=== PATIENT | male | born 1960 | race Caucasian/White ===

== ENCOUNTER 2021-07-08 14:00 | Emergency (ER) | payer SELFPAY ==
[2021-07-08 14:16] VITALS: BP 133/72; PULSE 61; RESP 20; TEMP 36.5; O2SAT 99
[2021-07-08 14:28] LABS: Glucose Point of Care 127 mg/dl (65-105)
--- NOTE | 2021-07-08 14:41 | ED.DIZZY ---
HPI - Dizziness General Chief Complaint: Dizziness Stated Complaint: dizziness Source: family () History of Present Illness HPI Narrative: Patient tells registration that he is dizzy and weak. 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 Patient was unable to verbalize questions and was holding head. reports patient awoke at 0530 am with severe dizziness. She reports diaphoresis, barely could stand and weakness. reports thinking he had hypoglycemia and fed him a chocolate bar. reports that patient has not been to a doctor in 20 years. Patient continues to be unable to verbalize answers to questions. Discussed that patient's condition concerning with and calling EMS at this time. reports that he will not go by EMS, however patient does not verbalize answer. Patient appears extremely confused. insistent on glucose check and then leaving. Again recommended EMS transport because of symptoms. reports that they are leaving at this time and she will drive him to ED. Again urged and patient to be transported by EMS which is refused. Full physical assessment not completed because is taking him to ED. Patient is unable to walk with steady gait and put in wheelchair at this time. signs AMA and is aware of the risks of leaving and not letting EMS be called. No medical history available on patient as he has not been to an [facility] medical office or provider in the past. does not let Urgent Care know where she is going so unable to call report at this time. elicited complaint: other Related Data Home Medications Medication Instructions Recorded Confirmed No Home Medications 07/08/21 07/08/21 Allergies Allergy/AdvReac Type Severity Reaction Status Date / Time No Known Allergies Allergy Verified 07/08/21 14:41 Review of Systems Review of Systems: Unable to complete a review of systems due to patient's condition and inability to answer questions. PMFSH Comments Past medical history is unavailable and patient and left AMA. Exam Narrative: Unable to complete exam as patient left AMA Course Vital Signs Vital signs: Vital Signs Temperature 36.5 C 07/08/21 14:16 Pulse Rate 61 07/08/21 14:16 Respiratory Rate 20 07/08/21 14:16 Blood Pressure 133/72 07/08/21 14:16 Pulse Oximetry 99 07/08/21 14:16 Temperature 36.5 C 07/08/21 14:16 Pulse Rate 61 07/08/21 14:16 Respiratory Rate 20 07/08/21 14:16 Blood Pressure 133/72 07/08/21 14:16 Pulse Oximetry 99 07/08/21 14:16 MDM - Dizziness Lab Data Labs: Lab Results 07/08/21 Range/Units 14:24 POC Capillary Glucose 127 H (65-105) mg/dl Critical Care Time Critical Care Time Critical Care Time: No Discharge Plan Discharge Patient Disposition: Left Against Medical Advice Condition: Guarded Prognosis Prescriptions: No Action No Home Medications RF: 0 Follow-up/Referrals: UNKNOWN,DOCTOR [Primary Care Provider] -
== END 2021-07-08 14:30 | disposition left against medical advice (07) ==
PROVIDERS: Emergency Provider Nurse Practitioner
DX: R42 Dizziness and giddiness (principal); R41.82 Altered mental status, unspecified
CPT/HCPCS: 82948; 99212; G0463

== ENCOUNTER 2024-01-12 16:03 | Emergency (ER) | payer OTHER, SELFPAY ==
[2024-01-12 16:11] VITALS: BP 137/89; PULSE 64; RESP 16; TEMP 36.6; O2SAT 100
--- NOTE | 2024-01-12 16:26 | ED.BACK ---
HPI - Back Pain/Injury General Chief Complaint: Back Pain/Injury Stated Complaint: Low Back Pain/Left Flank Pain History of Present Illness HPI Narrative: PATIENT PRESENTS WITH LEFT FLANK PAIN. PATIENT STATES THIS HAS BEEN GOING ON FOR 2 MONTHS. PATIENT DENIES ANY INJURY DENIES ANY NUMBNESS OR TINGLING DENIES ANY RADIATION OF PAIN DENIES ANY BOWEL OR BLADDER PROBLEMS DENIES ANY SADDLE ANESTHESIA. PATIENT DENIES ANY URINARY SYMPTOMS. PATIENT STATES HE CALLED HIS PRIMARY CARE AND WAS INSTRUCTED TO GO THE EMERGENCY ROOM TO RULE OUT GALLSTONES. Related Data Allergies Allergy/AdvReac Type Severity Reaction Status Date / Time No Known Allergies Allergy Verified 07/08/21 14:41 Review of Systems Review of Systems: CONSTITUTIONAL: DENIES FEVER, CHILLS, OR SWEATS. EYES: DENIES VISUAL CHANGES, REDNESS, OR DISCHARGE. ENT: DENIES RHINORRHEA, CONGESTION, SORE THROAT, OR OTALGIA. CARDIOVASCULAR: DENIES CHEST PAIN, PALPITATIONS, OR EDEMA. RESPIRATORY: DENIES COUGH OR DYSPNEA. GASTROINTESTINAL: DENIES ABDOMINAL PAIN, NAUSEA, VOMITING, OR DIARRHEA. GENITOURINARY: DENIES DYSURIA OR HEMATURIA. SKIN: DENIES RASH OR ITCHING. MUSCULOSKELETAL: DENIES BACK PAIN, JOINT PAIN, OR MYALGIA. NEUROLOGIC: DENIES HEADACHE, NUMBNESS, OR WEAKNESS. PSYCHIATRIC: DENIES ANXIETY OR DEPRESSION. PMFSH Comments AT TIME OF SIGNATURE, AGREE WITH NURSING PAST MEDICAL, SURGICAL, SOCIAL AND FAMILY HISTORY. THERE IS NO RELEVANT FAMILY HISTORY PERTINENT TO THE PRESENTING COMPLAINT Exam Narrative: GENERAL: WELL-APPEARING, WELL-NOURISHED, AND IN NO ACUTE DISTRESS. HEAD: NORMOCEPHALIC, ATRAUMATIC. EYES: PERRLA AND EOMI. ENT: NARES CLEAR, NO RHINORRHEA OR EPISTAXIS. MUCOUS MEMBRANES MOIST. NECK: SUPPLE. CHEST: CLEAR TO AUSCULTATION. NO RESPIRATORY DISTRESS. HEART: REGULAR RATE AND RHYTHM. NO MURMUR HEARD. NORMAL PERIPHERAL PULSES. ABDOMEN: SOFT, NONTENDER, NONDISTENDED, NORMAL ACTIVE BOWEL SOUNDS. LEFT FLANK PAIN EXTREMITIES: NORMAL RANGE OF MOTION. NO EDEMA.PINE MIDLINE. NO CURVATURE APPARENT. NO VERTEBRAL POINT SPECIFIC TENDERNESS. NO DEFORMITY. NO STEP-OFFS. NORMAL LE STRENGTH BILATERALLY. NORMAL LE SENSATION BILATERALLY. ABLE TO WALK ON TOES AND HEELS WITH NORMAL DORSIFLEXION AND PLANTAR FLEXION STRENGTH. NO WEAKNESS OBSERVED WITH GAIT. LEFT PARASPINAL MUSCLE TENDERNESS FLEXION STRENGTH. NO WEAKNESS OBSERVED WITH GAIT. LEFT PARASPINAL MUSCLE TENDERNESS. NO LEFT SI JOINT TENDERNESS. FLEXION AND EXTENSION ROM NORMAL, ONLY SLIGHT LIMITATION. SKIN: WARM, DRY, NO RASH. NEURO: NO FOCAL DEFICITS. ALERT AND ORIENTED X3. DELON COMA SCALE EYE OPENING: SPONTANEOUS 4 DELON COMA SCALE MOTOR: OBEYS COMMANDS 6 DELON COMA SCALE VERBAL: ORIENTED 5 DELON COMA SCALE TOTAL 15 Course Course Level of Care: Express Care Visit Vital Signs Vital signs: Vital Signs Temperature 36.6 C 01/12/24 16:11 Pulse Rate 64 01/12/24 16:11 Respiratory Rate 16 01/12/24 16:11 Blood Pressure 137/89 01/12/24 16:11 Pulse Oximetry 100 01/12/24 16:11 Oxygen Delivery Room Air 01/12/24 16:11 Temperature 36.6 C 01/12/24 16:11 Pulse Rate 64 01/12/24 16:11 Respiratory Rate 16 01/12/24 16:11 Blood Pressure 137/89 01/12/24 16:11 Pulse Oximetry 100 01/12/24 16:11 Oxygen Delivery Room Air 01/12/24 16:11 PLEASE [facility] SCHEDULE A FOLLOWUP VISIT WITH YOUR PERSONAL PHYSICIAN FOR FURTHER EVALUATION AND TREATMENT. INCLUDING RECHECK AND DISCUSSION OF YOUR BLOOD PRESSURE. IF YOUR SYMPTOMS PERSIST, CHANGE OR WORSEN SIGNIFICANTLY BEFORE YOU CAN CONTACT YOUR PERSONAL PHYSICIAN THEN PLEASE, WITHOUT DELAY, GO TO THE EMERGENCY DEPARTMENT FOR FURTHER EVALUATION PATIENT DENIES A HISTORY OF KIDNEY STONES STATES HE HAS HAD THIS FLANK PAIN ON AND OFF FOR THE LAST 2 MONTHS. PATIENT DENIES ANY FEVER DENIES ANY URINARY SYMPTOMS. PATIENT DECLINES TRANSFER TO THE EMERGENCY ROOM AT THIS TIME. MDM - Back Pain/Injury Lab Data Labs: Urine Glucose Nega
== END 2024-01-12 16:41 | disposition home or self-care (01) ==
PROVIDERS: Emergency Provider Nurse Practitioner Family; PCP Internal Medicine
DX: R10.9 Unspecified abdominal pain (principal)
CPT/HCPCS: 81003; 87086; 99213; G0463